=== PATIENT | female | born 2000 ===

== ENCOUNTER → 2023-04-22 23:59 | Outpatient (BNV) | payer OTHER, SELFPAY ==
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
== END ==
PROVIDERS: PCP Nurse Practitioner Family; Visit Provider Nurse Practitioner Family
DX: J30.2 Other seasonal allergic rhinitis (principal); Z28.21 Immunization not carried out because of patient refusal; R56.9 Unspecified convulsions
CPT/HCPCS: 99205

== ENCOUNTER → 2023-05-07 10:30 | Outpatient (BNV) | payer OTHER, SELFPAY ==
--- NOTE | 2023-05-07 10:30 | A.OFFVIS_ITS ---
Intake Intake Visit Reasons: Amb Documentation Allergies Penicillins Allergy (Severe, Verified 04/24/23 10:01) Anaphylaxis risperidone [From Risperdal] Allergy (Intermediate, Verified 04/24/23 10:01) Rash Seasonal Allergies Allergy (Intermediate, Verified 04/24/23 10:01) Runny Nose HPI HPI Comments History of Present Illness Details brief visit to say had implanon remobved and began depo yesterday - wants to come here for follow up. not sure when. depo is due 07/28 but told her to begin the process in june - suggest the but is good too no problems - no complaints. [facility] Medical History ADHD Anemia Anxiety and depression Asthma COVID-19 vaccination refused Deafness, bilateral Migraine Nexplanon in place On depot medroxyprogesterone acetate for contraception PCOS (polycystic ovarian syndrome) PTSD (post-traumatic stress disorder) Seasonal allergies Seizures Family History Mother Asthma Anemia Cervical cancer Seizure Father Heart disease Son ADHD Daughter Seizure Daughter No problems noted. Review of Systems Const Details: Counseling visit: All systems reviewed & are unremarkable except as noted in HPI and below Reports as per HPI Resp Reports as per HPI GI Reports as per HPI Musc Reports as per HPI Neuro Reports as per HPI Psych Reports as per HPI Physical Exam Const General: cooperative, healthy appearing and no acute distress Nutritional Appearance: well nourished Orientation/consciousness: oriented to person Limitations: no limitations HEENT Other: wnl Eyes Other: wnl Chest Other: easy breathing Resp Effort & Inspection: able to speak in complete sentences Skin Other: normal in appearance Neuro General: oriented to person Psych Other: see HPI Mental Status: mental status grossly normal Speech and movement: Clear speech present Attitude: cooperative Thought process: Normal thought process present Assessment & Plan Assessment & Plan (1) control counseling: Code(s): Z30.09 - Encounter for other general counseling and advice on contraception (2) On depot medroxyprogesterone acetate for contraception: Code(s): Z30.42 - Encounter for surveillance of injectable contraceptive Plan too early to order med for 3 months from now. discussed plan - she will begin thinking about returning june 29 Coding Level of Care Code Est Pt Level 3 (17339) Diagnoses control counseling Z30.09 On depot medroxyprogesterone acetate for contraception Z30.42 Time Spent (min) 15 Comment counseling /coord care w/ onsite counselor to support student in plan
== END ==
PROVIDERS: PCP Nurse Practitioner Family; Visit Provider Nurse Practitioner Family
DX: Z30.09 Encounter for other general counseling and advice on contraception (principal); Z30.42 Encounter for surveillance of injectable contraceptive
CPT/HCPCS: 99213

== ENCOUNTER → 2023-05-12 10:03 | Outpatient (BNV) | payer OTHER, SELFPAY ==
--- NOTE | 2023-05-12 10:03 | MHC.OFFVIS ---
Intake Intake Visit Reasons: Amb Documentation Allergies Penicillins Allergy (Severe, Verified 04/24/23 10:01) Anaphylaxis risperidone [From Risperdal] Allergy (Intermediate, Verified 04/24/23 10:01) Rash Seasonal Allergies Allergy (Intermediate, Verified 04/24/23 10:01) Runny Nose HPI HPI Comments History of Present Illness Details student signing up for visit [facility] feels having difficulty breathing. wheezing in middle of night, using albuterol pump and flovent (unknown dosage) but not feeling as much relief as she usually does. migraines, and feels congested(not observed), wonders if it's a sinus infection. lungs are clear to exam, and oximeter w/in range (98%) heart rate up 100, likely because of albuterol use. she has requested appt through [facility] plan 1) IF chest pain continues she is to go to ER or urgent care 2) she will call [facility] to get connected to pcp in a more urgent way than requesting online 3)she would like nebulizer, I will attempt to order this through [facility] on [address] including meds 4)claritin given now and she will begin taking hers at home more regularly 5)check in tomorrow [facility] Medical History (Updated 05/12/23 @ 10:14 by RAUL Fernández) ADHD Anemia Anxiety and depression Asthma COVID-19 vaccination refused Deafness, bilateral Migraine Nexplanon in place On depot medroxyprogesterone acetate for contraception PCOS (polycystic ovarian syndrome) PTSD (post-traumatic stress disorder) Seasonal allergies Seizures Family History Mother Asthma Anemia Cervical cancer Seizure Father Heart disease Son ADHD Daughter Seizure Daughter No problems noted. Review of Systems Const All systems reviewed & are unremarkable except as noted in HPI and below Reports as per HPI Eyes Reports no additional complaints ENT Reports change in voice (was hoarse this morning but cleared after shower) Card Details: vague description of pressure like chest pain, Resp Reports as per HPI, Reports cough and Reports wheezing GI Reports no additional complaints Neuro Reports no additional complaints Psych Details: has history of anxiety and panic but feels this is diffferent Reports no additional complaints Aller/Immun Reports no additional complaints and Reports wheezing Physical Exam Vital Signs: oxygen 98% hr 90 auscultation and 100 oximeter Const Other: appears well, no overt s/s of distress, dry cough General: cooperative and comfortable Nutritional Appearance: average body habitus Orientation/consciousness: oriented to person Limitations: no limitations HEENT Head: Yes normal to inspection Ears: hearing grossly impaired (normal for client) General nose exam: No nasal discharge present Mouth: Normal oral and palatal mucosa present Chest Chest palpation & inspection: normal inspection of the chest Resp Effort & Inspection: normal respiratory effort, able to speak in complete sentences, Actively coughing (occasional dry cough) Quality: dry and tachypneic Auscultation: clear to auscultation bilaterally Cardio Rate: tachycardic Rhythm: regular rhythm Neuro General: oriented to person Psych Appearance: grossly normal Mental Status: mental status grossly normal Speech and movement: Normal speech and movement present Affect: normal affect Attitude: cooperative Thought process: Normal thought process present Assessment & Plan Assessment & Plan (1) Moderate asthma with allergic rhinitis with acute exacerbation: Code(s): J45.901 - Unspecified asthma with (acute) exacerbation (2) Seasonal allergies: Code(s): J30.2 - Other seasonal allergic rhinitis (3) Chest pain of unknown etiology: Code(s): R07.9 - Chest pain, unspecified (4) Tachypnea: Code(s): R06.82 - Tachypnea, not elsewhere classified Plan 1) IF chest pain continues she is to go to ER or urgent care 2) she will call [facility] to get connected to pcp in a more urgent way than requesting online 3)she would like nebulizer, I will attempt to [facility] through [facility] on [address] including meds 4)claritin given now and she will begin taking hers at home more regularly 5)check in tomorrow Coding Level of Care Code Est Pt Level 3 (62177) Diagnoses Moderate asthma with allergic rhinitis with acute exacerbation J45.901 Seasonal allergies J30.2 Chest pain of unknown etiology R07.9 Tachypnea R06.82 Time Spent (min) 20
== END ==
PROVIDERS: PCP Nurse Practitioner Family; Visit Provider Nurse Practitioner Family
DX: J45.901 Unspecified asthma with (acute) exacerbation (principal); J30.2 Other seasonal allergic rhinitis; R07.9 Chest pain, unspecified; R06.82 Tachypnea, not elsewhere classified
CPT/HCPCS: 99213

== ENCOUNTER → 2023-05-21 11:56 | Outpatient (BNV) | payer OTHER, SELFPAY ==
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
== END ==
PROVIDERS: PCP Nurse Practitioner Family; Visit Provider Nurse Practitioner Family
DX: N89.8 Other specified noninflammatory disorders of vagina (principal)
CPT/HCPCS: 99212

== ENCOUNTER → 2023-06-03 10:15 | Outpatient (BNV) | payer OTHER, SELFPAY ==
--- NOTE | 2023-06-03 10:15 | MHC.OFFVIS ---
Intake Intake Visit Reasons: Amb Documentation Allergies Penicillins Allergy (Severe, Verified 04/24/23 10:01) Anaphylaxis risperidone [From Risperdal] Allergy (Intermediate, Verified 04/24/23 10:01) Rash Seasonal Allergies Allergy (Intermediate, Verified 04/24/23 10:01) Runny Nose HPI HPI Comments History of Present Illness Details student here states another cyst on arm - opened. small 1/2'' no redness spreading on left upper arm near elbow. no drainage bacitracin applied and provided and bandages. covered for now. [facility] Medical History ADHD Anemia Anxiety and depression Asthma COVID-19 vaccination refused Deafness, bilateral Migraine Nexplanon in place On depot medroxyprogesterone acetate for contraception PCOS (polycystic ovarian syndrome) PTSD (post-traumatic stress disorder) Seasonal allergies Seizures Family History Mother Asthma Anemia Cervical cancer Seizure Father Heart disease Son ADHD Daughter Seizure Daughter No problems noted. Review of Systems Const All systems reviewed & are unremarkable except as noted in HPI and below Reports no additional complaints ENT Reports no additional complaints Details: everything is fine Musc Reports no additional complaints Skin/Breast Reports system reviewed and no additional complaints, except as documented and Reports furuncle Psych Reports no additional complaints Physical Exam Const General: cooperative, healthy appearing and comfortable Nutritional Appearance: average body habitus Resp Effort & Inspection: normal respiratory effort Skin Other: small 1/2'' scabbed lesion on left upper arm near elbow - no drainage and no redness traveling. bacitracin applied (and given to student) and covered. no restriction of motion, no swelling...lesion is well circumscribed Psych Appearance: grossly normal Mental Status: mental status grossly normal Assessment & Plan Assessment & Plan (1) Boil of upper arm and forearm: Code(s): L02.429 - Furuncle of limb, unspecified Plan: teaching done, bacitracin applied and given and covered . student is familiar w/ these and knows how to treat. Coding Level of Care Code Est Pt Level 3 (30990) Diagnoses Boil of upper arm and forearm L02.429 Time Spent (min) 15
== END ==
PROVIDERS: PCP Nurse Practitioner Family; Visit Provider Nurse Practitioner Family
DX: L02.429 Furuncle of limb, unspecified (principal)
CPT/HCPCS: 99213

== ENCOUNTER → 2023-06-04 10:09 | Outpatient (BNV) | payer OTHER, SELFPAY ==
--- NOTE | 2023-06-04 10:09 | A.OFFVIS_ITS ---
Intake Intake Visit Reasons: Amb Documentation Allergies Penicillins Allergy (Severe, Verified 04/24/23 10:01) Anaphylaxis risperidone [From Risperdal] Allergy (Intermediate, Verified 04/24/23 10:01) Rash Seasonal Allergies Allergy (Intermediate, Verified 04/24/23 10:01) Runny Nose HPI HPI Comments History of Present Illness Details student complaining of irreg bleeding. switched control recently and has been bleeding for a month was on nexplanon so switched to depo - a month ago, bleeding now for 47 (given at [facility]). some days it will be light and she thinks it will stop and it doesn't - it will start to stop, intercourse and will bleed after (red blood). no change w/ bleeding from switch to depo (it got a bit heavier). after son - b led for 2 weeks and then got on nexplanon- and had no problems. w/ her they put her on control right away (first daughter was the patch...bled a lot and they switched her to regulate the bleeding and there was a large clot and brought to hospital and it was an ''...regular period began w/ no control, and a year later when was back in relationship,got ...second daughter:nexplanon right away and she has been bleeding right away....had it removed because it was hurting, so had depo put in. had a conversation w/ partner...and they decided to just use condoms instead. (uses condoms w/ control already). this partner been w/ for 6 months. he treats her well and she feels this conversaation will actually be what they will do. she has PCOS. so periods are often irregular but that's not like this. depo will be done in june. she wants to know how long this problem w/ continue. discussed this at length. it is unknown but she can talk to [facility] if it continues to novemeber. sore went away on it 's own - used a different soap - went away the same day. [facility] Medical History (Updated 06/04/23 @ 10:34 by RAUL Fernández) ADHD Anemia Anxiety and depression Asthma COVID-19 vaccination refused Deafness, bilateral Migraine Nexplanon in place On depot medroxyprogesterone acetate for contraception PCOS (polycystic ovarian syndrome) PTSD (post-traumatic stress disorder) Seasonal allergies Seizures Family History Mother Asthma Anemia Cervical cancer Seizure Father Heart disease Son ADHD Daughter Seizure Daughter No problems noted. Review of Systems Const Details: Counseling visit: All systems reviewed & are unremarkable except as noted in HPI and below Reports as per HPI Resp Reports as per HPI GI Reports as per HPI Musc Reports as per HPI Neuro Reports as per HPI Psych Reports as per HPI Physical Exam Const General: cooperative, healthy appearing and no acute distress Nutritional Appearance: well nourished Orientation/consciousness: oriented to person Limitations: no limitations HEENT Other: wnl Eyes Other: wnl Chest Other: easy breathing Resp Effort & Inspection: able to speak in complete sentences Skin Other: normal in appearance Neuro General: oriented to person Psych Other: see HPI Mental Status: mental status grossly normal Speech and movement: Clear speech present Attitude: cooperative Thought process: Normal thought process present Assessment & Plan Assessment & Plan (1) Irregular menstrual bleeding: Code(s): N92.6 - Irregular menstruation, unspecified (2) control counseling: Code(s): Z30.09 - Encounter for other general counseling and advice on contraception (3) On depot medroxyprogesterone acetate for contraception: Code(s): Z30.42 - Encounter for surveillance of injectable contraceptive Plan extensive counseling. she will stop depo in june and use condoms only. Coding Level of Care Code Est Pt Level 4 (74194) Diagnoses Irregular menstrual bleeding N92.6 control counseling Z30.09 On depot medroxyprogesterone acetate for contraception Z30.42 Time Spent (min) 35 Comment extensive counseling
== END ==
PROVIDERS: PCP Nurse Practitioner Family; Visit Provider Nurse Practitioner Family
DX: N92.6 Irregular menstruation, unspecified (principal); Z30.09 Encounter for other general counseling and advice on contraception; Z30.42 Encounter for surveillance of injectable contraceptive
CPT/HCPCS: 99214

== ENCOUNTER → 2023-07-08 09:40 | Outpatient (BNV) | payer OTHER, SELFPAY ==
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
== END ==
PROVIDERS: PCP Nurse Practitioner Family; Visit Provider Nurse Practitioner Family
DX: R30.0 Dysuria (principal)
CPT/HCPCS: 99212

== ENCOUNTER → 2023-07-10 10:18 | Outpatient (BNV) | payer OTHER, SELFPAY ==
--- NOTE | 2023-07-10 10:18 | A.OFFVIS_ITS ---
Intake Intake Visit Reasons: Amb Documentation Allergies Penicillins Allergy (Severe, Verified 04/24/23 10:01) Anaphylaxis risperidone [From Risperdal] Allergy (Intermediate, Verified 04/24/23 10:01) Rash Seasonal Allergies Allergy (Intermediate, Verified 04/24/23 10:01) Runny Nose HPI HPI Comments History of Present Illness Details student coming in w/ complaints about 'lightheadedness - been going on since this morning but she felt it would go away if she got hydrated. she is on Radha? ocp/progestin only.(suspect slynd??) she is off depo but hasn't had sex in a long while so is not a concern. she feels lightheaded, but describes pressure in her head and pain in the back of her neck. states that this has happened before and she usually ends w/ a migraine. last time about a month ago she had this and took 2 advil and found it didn't help. she had been on ?s medication before for migraines (Sumatriphan?)(imitrex?) she doesn't know. she doesn't have a primary yet because still can't get [employer] to change her insurance - she has [employer] and can't see anyone out here w/ sunil...so wants to switch but can't because the 'window closed' - suggested that the window might be open and she will look into this. she doesn't feel congested at all. occasionally feels that her eyesight gets blurry. Long conversation: suggested that she go to get this worked up and she doesnt' want to do that right now - she would like to treat it as a migraine aura feeling. she wants 2 aleve. given w/ suggestion that if not improved - go to urgent care. [facility] Medical History (Updated 07/10/23 @ 10:28 by RAUL Fernández) History of migraine On depot medroxyprogesterone acetate for contraception Anxiety and depression Deafness, bilateral PTSD (post-traumatic stress disorder) PCOS (polycystic ovarian syndrome) Nexplanon in place Seizures COVID-19 vaccination refused Seasonal allergies ADHD Migraine Anemia Asthma Family History Mother Asthma Anemia Cervical cancer Seizure Father Heart disease Son ADHD Daughter Seizure Daughter No problems noted. Review of Systems Const Details: Counseling visit: All systems reviewed & are unremarkable except as noted in HPI and below Reports as per HPI Eyes Reports blurry vision (occas) ENT Reports neck pain Card Reports no additional complaints Resp Reports as per HPI and Reports no additional complaints GI Reports as per HPI and Reports no additional complaints Musc Reports as per HPI and Reports neck pain Neuro Details: lightheaded - feeling of pressure in head Reports as per HPI Psych Reports as per HPI Endo Reports no additional complaints Physical Exam Const General: cooperative, healthy appearing and no acute distress Nutritional Appearance: well nourished Orientation/consciousness: oriented to person Limitations: no limitations HEENT Other: wnl Eyes Other: wnl Chest Other: easy breathing Resp Effort & Inspection: able to speak in complete sentences Skin Other: normal in appearance Neuro General: oriented to person Psych Other: see HPI Mental Status: mental status grossly normal Speech and movement: Clear speech present Attitude: cooperative Thought process: Normal thought process present Assessment & Plan Assessment & Plan (1) Lightheaded: Code(s): R42 - Dizziness and giddiness (2) History of migraine: Code(s): Z86.69 - Personal history of other diseases of the nervous system and sense organs Plan 2 aleve given now. encouraged to urgent care if s/s continue Coding Level of Care Code Est Pt Level 3 (23037) Diagnoses Lightheaded R42 History of migraine Z86.69 Time Spent (min) 20
== END ==
PROVIDERS: PCP Nurse Practitioner Family; Visit Provider Nurse Practitioner Family
DX: R42 Dizziness and giddiness (principal); Z86.69 Personal history of other diseases of the nervous system and sense organs
CPT/HCPCS: 99213

== ENCOUNTER → 2023-12-09 10:27 | Outpatient (BNV) | payer OTHER, SELFPAY ==
--- NOTE | 2023-12-09 10:28 | MHC.OFFVIS ---
Intake Intake Visit Reasons: Amb Documentation Allergies Penicillins Allergy (Severe, Verified 04/24/23 10:01) Anaphylaxis risperidone [From Risperdal] Allergy (Intermediate, Verified 04/24/23 10:01) Rash Seasonal Allergies Allergy (Intermediate, Verified 04/24/23 10:01) Runny Nose HPI HPI Comments History of Present Illness Details student here for test. periods are irreg M1 nausea and vomiting. lmp oct 30. condom 'fell off' about 3 weeks ago. her children are 5,2 and 10months. none of them are her current partners. she doesnt want another baby - he always uses condoms - and he isnt ready either. but if she is she doesnt believe in . hcg is negative - so asked aobut the nausea and vomiting - not really out of range for her - if she eats too much fat or eats something she isnt really craving. PLAN 1) extensive counseling done, condom use reviewed. she has plan b but just didnt think about it - she understands how it works. return in 1 week if no period and we can order bhcg at that time. phq 9 reviewed as well [facility] Medical History (Updated 07/10/23 @ 10:28 by RAUL Fernández) History of migraine On depot medroxyprogesterone acetate for contraception Anxiety and depression Deafness, bilateral PTSD (post-traumatic stress disorder) PCOS (polycystic ovarian syndrome) Nexplanon in place Seizures COVID-19 vaccination refused Seasonal allergies ADHD Migraine Anemia Asthma Family History Mother Asthma Anemia Cervical cancer Seizure Father Heart disease Son ADHD Daughter Seizure Daughter No problems noted. Questionnaire PHQ-9 Over the last 2 weeks, how often have you been bothered by any of the following problems? 1. Little interest or pleasure in doing things: not at all 2. Feeling down, depressed, or hopeless: several days 3. Trouble falling or staying asleep, or sleeping too much: not at all 4. Feeling tired or having little energy: several days 5. Poor appetite or overeating: not at all 6. Feeling bad about yourself - or that you are a failure or have let yourself or your family down: not at all 7. Trouble concentrating on things, such as reading the newspaper or watching television: several days 8. Moving or speaking so slowly that other people could have noticed. Or the opposite - being so fidgety or restless that you have been moving around a lot more than usual: not at all 9. Thoughts that you would be better off or of hurting yourself in some way: not at all Total score: 3 Depression Screening Interpretation: Negative (young 23 year old mother with 3 children in school) Depression Screening Done: Yes 34161 - PHQ-9 Billing: Yes Source: Developed by Drs. Jose Alejandro Sexton, Akua Hair, Long Breger and colleagues, with an educational kulwinder from [employer] CRAFFT Screening Tool PART A: In the PAST 12 MONTHS, did you: Drink any alcohol (more than few sips)? (Do not count sips of alcohol taken during family or oriental orthodox events.): No Smoke any marijuana or hashish?: No Use anything else to get high? (includes illegal drugs, over the counter/prescription drugs, or things that you sniff/loivas?): No PART B: If answered YES to ANY above: Have you ever been in a CAR driven by someone (including yourself) who was high or had been using alcohol or drugs?: No CRAFFT Assessment Charge Crafft: JACKIE [id number] Review of Systems Const Details: Counseling visit: All systems reviewed & are unremarkable except as noted in HPI and below Reports as per HPI Resp Reports as per HPI GI Reports as per HPI Musc Reports as per HPI Neuro Reports as per HPI Psych Reports as per HPI Physical Exam Const General: cooperative, healthy appearing and no acute distress Nutritional Appearance: well nourished Orientation/consciousness: oriented to person Limitations: no limitations HEENT Other: wnl Eyes Other: wnl Chest Other: easy breathing Resp Effort & Inspection: able to speak in complete sentences Skin Other: normal in appearance Neuro General: oriented to person Psych Other: see HPI Mental Status: mental status grossly normal Speech and movement: Clear speech present Attitude: cooperative Thought process: Normal thought process present Assessment & Plan Assessment & Plan (1) Irregular menstrual bleeding: Code(s): N92.6 - Irregular menstruation, unspecified (2) control counseling: Code(s): Z30.09 - Encounter for other general counseling and advice on contraception (3) PCOS (polycystic ovarian syndrome): Code(s): E28.2 - Polycystic ovarian syndrome Plan hcg is negative - extensive teaching /counseling done to teach about condom/plan b and return in 1 week for repeat hcg and likely bhcg Orders: Orders AMB HCG Urine Test Today N92.6 - Irregular menstruation, unspecified, Z32.02 - Encounter for test, result negative Quality Reporting (2019) Depression/Bipolar (159/160/161/177) PHQ-9: Total score: 3 Coding Level of Care Code Est Pt Level 4 (25228) Diagnoses Irregular menstrual bleeding N92.6 control counseling Z30.09 PCOS (polycystic ovarian syndrome) E28.2 Additional Codes CRAFFT Assessment Charge - Crafft: [id number] ([id number]) Time Spent (min) 45 Comment counseling/screening and teaching
== END ==
PROVIDERS: PCP Nurse Practitioner Family; Visit Provider Nurse Practitioner Family
DX: N92.6 Irregular menstruation, unspecified (principal); Z30.09 Encounter for other general counseling and advice on contraception; E28.2 Polycystic ovarian syndrome; Z13.30 Encounter for screening examination for mental health and behavioral disorders, unspecified
CPT/HCPCS: 96160; 99214

== ENCOUNTER → 2023-12-10 09:29 | Outpatient (BNV) | payer OTHER, SELFPAY ==
--- NOTE | 2023-12-10 09:29 | MHC.OFFVIS ---
Intake Intake Visit Reasons: Amb Documentation Allergies Penicillins Allergy (Severe, Verified 04/24/23 10:01) Anaphylaxis risperidone [From Risperdal] Allergy (Intermediate, Verified 04/24/23 10:01) Rash Seasonal Allergies Allergy (Intermediate, Verified 04/24/23 10:01) Runny Nose HPI HPI Comments History of Present Illness Details student coming here w episode of bloody discharge, she thought she was getting her period but nothing happened since then - she is still having cramping but no more bleeding. discussed possible options - from ovulation, to normal, to infection to early preg. looking at calendar and dates of unprotected sex - only known for sure 12/01 because tthey were looking for the condom which had fallen off. but she was told - maybe it broke another time since then though he never informed her for sure. so looking at the calendar we agreed that while the urine test yestrday was negative - the likelihood of a missed from that 12/01 is unlikely - but if condom broke since then, it would be too early. so she will wait until friday to retest. if any problem will return sooner [facility] Medical History (Updated 12/10/23 @ 09:51 by RAUL Fernández) History of migraine On depot medroxyprogesterone acetate for contraception Anxiety and depression Deafness, bilateral PTSD (post-traumatic stress disorder) PCOS (polycystic ovarian syndrome) Nexplanon in place Seizures COVID-19 vaccination refused Seasonal allergies ADHD Migraine Anemia Asthma Family History Mother Asthma Anemia Cervical cancer Seizure Father Heart disease Son ADHD Daughter Seizure Daughter No problems noted. Female Reproductive History Menstrual control method: condoms Review of Systems Const Details: Counseling visit: All systems reviewed & are unremarkable except as noted in HPI and below Reports as per HPI Resp Reports as per HPI GI Reports as per HPI Musc Reports as per HPI Neuro Reports as per HPI Psych Reports as per HPI Physical Exam Const General: cooperative, healthy appearing and no acute distress Nutritional Appearance: well nourished Orientation/consciousness: oriented to person Limitations: no limitations HEENT Other: wnl Eyes Other: wnl Chest Other: easy breathing Resp Effort & Inspection: able to speak in complete sentences Skin Other: normal in appearance Neuro General: oriented to person Psych Other: see HPI Mental Status: mental status grossly normal Speech and movement: Clear speech present Attitude: cooperative Thought process: Normal thought process present Assessment & Plan Assessment & Plan (1) PCOS (polycystic ovarian syndrome): Code(s): E28.2 - Polycystic ovarian syndrome (2) Irregular menstrual bleeding: Comment: bloody discharge noted today Code(s): N92.6 - Irregular menstruation, unspecified (3) Counseling and coordination of care: Code(s): Z71.89 - Other specified counseling Plan counseling and working on plan together to decide that she will return on friday and repeat the test and we can order bhcg then if needed. Coding Level of Care Code Est Pt Level 3 (18073) Diagnoses PCOS (polycystic ovarian syndrome) E28.2 Irregular menstrual bleeding N92.6 Counseling and coordination of care Z71.89 Time Spent (min) 25 Comment couseling and collaboration
== END ==
PROVIDERS: PCP Nurse Practitioner Family; Visit Provider Nurse Practitioner Family
DX: E28.2 Polycystic ovarian syndrome (principal); N92.6 Irregular menstruation, unspecified; Z71.89 Other specified counseling
CPT/HCPCS: 99213

== ENCOUNTER → 2023-12-22 09:47 | Outpatient (BNV) | payer OTHER, SELFPAY ==
--- NOTE | 2023-12-22 09:48 | A.OFFVIS_ITS ---
Intake Intake Visit Reasons: Amb Documentation Allergies Penicillins Allergy (Severe, Verified 04/24/23 10:01) Anaphylaxis risperidone [From Risperdal] Allergy (Intermediate, Verified 04/24/23 10:01) Rash Seasonal Allergies Allergy (Intermediate, Verified 04/24/23 10:01) Runny Nose HPI HPI Comments History of Present Illness Details student coming here for repeat of test. she has 3 children and really doesnt want to be . but 'my body feel weird - cramping, smells bother her - nausea, and no period (she has as a baseline - irregular periods)/ breast are not tender. urine test was negative - so we agreed to do bhcg and she would like rx for plan B put thorugh to [facility] Medical History History of migraine On depot medroxyprogesterone acetate for contraception Anxiety and depression Deafness, bilateral PTSD (post-traumatic stress disorder) PCOS (polycystic ovarian syndrome) Nexplanon in place Seizures COVID-19 vaccination refused Seasonal allergies ADHD Migraine Anemia Asthma Family History Mother Asthma Anemia Cervical cancer Seizure Father Heart disease Son ADHD Daughter Seizure Daughter No problems noted. Female Reproductive History Menstrual control method: condoms Review of Systems Const Details: Counseling visit: All systems reviewed & are unremarkable except as noted in HPI and below Reports as per HPI Resp Reports as per HPI GI Reports as per HPI Musc Reports as per HPI Neuro Reports as per HPI Psych Reports as per HPI Physical Exam Const General: cooperative, healthy appearing and no acute distress Nutritional Appearance: well nourished Orientation/consciousness: oriented to person Limitations: no limitations HEENT Other: wnl Eyes Other: wnl Chest Other: easy breathing Resp Effort & Inspection: able to speak in complete sentences Skin Other: normal in appearance Neuro General: oriented to person Psych Other: see HPI Mental Status: mental status grossly normal Speech and movement: Clear speech present Attitude: cooperative Thought process: Normal thought process present Assessment & Plan Assessment & Plan (1) Irregular menstrual bleeding: Code(s): N92.6 - Irregular menstruation, unspecified (2) control counseling: Code(s): Z30.09 - Encounter for other general counseling and advice on contraception (3) Counseling and coordination of care: Code(s): Z71.89 - Other specified counseling Plan counseling and teaching and coord care w her on-site counselor. consider tubal? will discuss after results of bhcg. Orders: Orders AMB HCG Urine Test Today N92.6 - Irregular menstruation, unspecified, Z32.02 - Encounter for test, result negative HCG Quantitative Today E28.2 - Polycystic ovarian syndrome, N92.6 - Irregular menstruation, unspecified Coding Level of Care Code Est Pt Level 3 (03743) Diagnoses Irregular menstrual bleeding N92.6 control counseling Z30.09 Counseling and coordination of care Z71.89 Time Spent (min) 25 Comment counseling and coord care w. onsite supports
== END ==
PROVIDERS: PCP Nurse Practitioner Family; Visit Provider Nurse Practitioner Family
DX: N92.6 Irregular menstruation, unspecified (principal); Z30.09 Encounter for other general counseling and advice on contraception; Z71.89 Other specified counseling
CPT/HCPCS: 99213